=== PATIENT | female | born 1990 | race Caucasian/White ===

== ENCOUNTER 2024-09-15 07:22 | Day surgery (SDC) | payer BC ==
[~2024-09-15 07:22] MED LIST: Acetaminophen 325 MG Tab PO ONE; Dexamethasone 4 MG/ML 5 ML MDV ONE; Lidocaine 1% 4 ML ONE; Midazolam 1 MG/ML 2 ML SDV ONE; Ondansetron 4 MG/2 ML SDV ONE; Propofol 200 MG/20 ML SDV ONE; Rocuronium 50 MG/5 ML Vial ONE; Sodium Chloride 0.9% 10 ML Syringe FLUSH PRN; ceFAZolin 2 GM Vial ONE; dexmedeTOMIDine HCl 200 MCG/2 ML SDV ONE; fentaNYL 250 MCG/5 ML SDV ONE
[2024-09-15] MEDS: Lactated Ringers 1,000 ML IV SCH (07:45)
[2024-09-15] MEDS ORDERED: HYDROmorphone 0.5 MG/0.5 ML Syringe IVPUSH PRN (07:54)
[2024-09-15] MEDS ORDERED: fentaNYL 100 MCG/2 ML SDV IVPUSH PRN (07:54)
[2024-09-15] MEDS: Acetaminophen 325 MG Tab PO ONE (07:59)
[2024-09-15] MEDS: Phenazopyridine 95 MG Tab PO ONE (08:00)
[2024-09-15] MEDS: Celecoxib 100 MG Cap PO ONE (08:00)
[2024-09-15] MEDS: Gabapentin 300 MG Cap PO ONE (08:00)
[2024-09-15 08:05] LABS: BASOPHILS ABSOLUTE AUTO 0.1 K/mm3 (0.0-0.2); BASOPHILS PERCENT AUTO 0.8 % (0.0-1.0); EOSINOPHILS ABSOLUTE AUTO 0.1 K/mm3 (0.0-0.4); EOSINOPHILS PERCENT AUTO 1.3 % (0.0-6.0); HEMATOCRIT 42.2 % (37.0-47.0); HEMOGLOBIN 14.3 gm/dl (12.0-16.0); IMMATURE GRAN ABSOLUTE AUTO 0.03 K/mm3 (0.00-0.05); IMMATURE GRAN PERCENT AUTO 0.4 % (0.0-0.4); LYMPHOCYTES ABSOLUTE AUTO 2.9 K/mm3 (1.0-4.8); LYMPHOCYTES PERCENT AUTO 38.9 % (24.0-44.0); MEAN CORPUSCULAR HEMOGLOBIN 30.6 pg (28.0-32.0); MEAN CORPUSCULAR HGB CONC 33.9 g/dl (32.0-36.0); MEAN CORPUSCULAR VOLUME 90.4 fl (83.0-99.0); MEAN PLATELET VOLUME 9.4 fl (9.4-12.3); MONOCYTES ABSOLUTE AUTO 0.5 K/mm3 (0.0-0.8); NEUTROPHILS ABSOLUTE AUTO 3.9 K/mm3 (1.8-7.7); NEUTROPHILS PERCENT AUTO 52.6 % (41.0-71.0); PLATELET COUNT,PLT 224 K/mm3 (150-400); RED BLOOD CELL COUNT 4.67 M/mm3 (4.10-5.30); WHITE BLOOD CELL COUNT,WBC 7.49 K/mm3 (3.9-11.3)
[2024-09-15 08:43] LABS: ANION GAP 14.6 (5-15); BUN/CREATININE RATIO 11.3 (14-18); CALCIUM 9.3 mg/dL (8.5-10.1); CREATININE 0.8 mg/dL (0.55-1.02); EST CRCL DRUG DOSING (CG) 86.19 mL/min; POTASSIUM,K 3.6 mEq/L (3.5-5.1)
[2024-09-15] MEDS ORDERED: Sodium Chloride 0.9% 10 ML Syringe FLUSH SCH (09:00)
[2024-09-15] MEDS ORDERED: Sugammadex Sodium 200 MG/2 ML VIAL IV ONE (09:07)
[2024-09-15] MEDS ORDERED: Lactated Ringers 1,000 ML ONE (09:07)
[2024-09-15] MEDS ORDERED: Ketorolac 30 MG/ML SDV ONE (09:07)
[2024-09-15] MEDS: Lidocaine 1% with EPINEPHrine 1:100,000 20 ML MDV ONE (09:18)
[2024-09-15] MEDS ORDERED: HYDROmorphone 0.5 MG/0.5 ML Syringe ONE (09:24)
[2024-09-15] MEDS ORDERED: Furosemide 40 MG/4 ML VIAL ONE (11:30)
[2024-09-15] MEDS: Ondansetron 4 MG/2 ML SDV IVPUSH PRN (12:00)
[2024-09-15] MEDS: oxyCODONE 5 MG Tab PO PRN (13:04)
== END 2024-09-15 14:25 | disposition home or self-care (01) ==
LOC: JD.SDS 07:22
PROVIDERS: ATTEND Obstetrics & Gynecology
DX: N83.02 Follicular cyst of left ovary (principal); N83.12 Corpus luteum cyst of left ovary; Z98.890 Other specified postprocedural states; Z79.899 Other long term (current) drug therapy
CPT/HCPCS: 36415; 58552; 80048; 85025; 86850; 86900; 86901; A9270; C1776; J0690; J1100; J1885; J1940; J2003; J2004; J2250; J2405; J2704; J3010; J7120; 00944; J3490